=== PATIENT | female | born 1995 | race Asian ===

== ENCOUNTER 2019-07-15 14:25 | Emergency (ER) | payer OTHER ==
[~2019-07-15] VITALS: Ht 157.5 cm; Wt 52.2 kg
--- NOTE | 2019-07-15 14:25 | NUR ---
PT TO ER BED 1
[2019-07-15 14:31] VITALS: BP 127/84
--- NOTE | 2019-07-15 14:37 | NUR ---
AMB TO BED 01
--- NOTE | 2019-07-15 14:42 | NUR ---
DR GOINS AT BEDSIDE EVALUATING PT.
--- NOTE | 2019-07-15 14:55 | NUR ---
3 DAYS RT EYE SWELLING WITHOUT TRUAMA ,WENT TO URGENT CARE YESTERDAY AND WAS RX WITH ABX EYE DROPS, NO RELIEF WITH USE. PT ABLE TO SEE AND DENIES TRUAMA AND DIZZENESS. HX- DENIES
[2019-07-15 15:00] VITALS: BP 127/84
--- NOTE | 2019-07-15 15:01 | NUR ---
Patient discharged with v/s stable. Written and verbal after care instructions given and explained. Patient alert, oriented and verbalized understanding of instructions. Ambulatory with steady gait. All questions addressed prior to discharge. ID band removed. Patient advised to follow up with PMD. Rx of ERYTHROMYCIN given. Patient educated on indication of medication including possible reaction and side effects. Opportunity to ask questions provided and answered.
== END 2019-07-15 15:01 | disposition home or self-care (01) ==
LOC: MED 14:25
DX: H01.001 Unspecified blepharitis right upper eyelid (principal)
CPT/HCPCS: 99283